=== PATIENT | male | born 1960 | race African-American/Black ===

== ENCOUNTER 2016-09-25 09:51 | Emergency (ER) | payer SELFPAY ==
[~2016-09-25] VITALS: Ht 188 cm; Wt 108.2 kg
[2016-09-25 09:54] VITALS: BP 201/108; PULSE 66; RESP 14; O2SAT 99
--- NOTE | 2016-09-25 10:17 | ED.REPORT ---
HPI-General Illness Date of Service Sep 25, 2016 ED Provider: Thony Antunez MD Patient is a 56 year old male with a history of hypertension who presents to the ED complaining of a headache. Associated symptoms include dizziness and right arm numbness that started 2 weeks ago. He denies chest pain, shortness of breath, abdominal pain or leg swelling. The patient thinks that his symptoms are due to his high blood pressure. Patient reports he used to take high blood pressure medication but he hasn't been taking it for the past two years. Nursing Notes Stated Complaint: BLOOD PRESSURE Chief Complaint: Headache Nursing Notes Reviewed: Yes Allergies: Coded Allergies: No Known Allergies (Unverified , 09/25/16) Scheduled Hydrochlorothiazide (Hydrochlorothiazide) 25 Mg Tablet 25 MG PO DAILY Lisinopril (Lisinopril) 20 Mg Tablet 20 MG PO DAILY General Time Seen by MD: 10:17 Chief Complaint Headache Hx Obtained From: Patient Arrived By: Walk-in Sudden in Onset?: Yes Onset Occurred: More than a week ago... Symptom Duration: Since onset Location: : Head Quality: Painful Severity: Current: Moderate Similar Sx Previous: No Past Medical History Past Medical History Reports: Hypertension Smoking History Current Every Day Smoker Ambulatory Status Independent Review of Systems Full Review of Systems Constitutional: Denies: Chills, Fever Respiratory: Denies: Non-productive cough, Shortness of breath Cardiovascular: Denies: Chest pain Skin: Denies Itching, Denies Rash Neurologic: Reports: Dizziness, Headache, Numbness, Denies: Weakness Complete sys rev & neg: except as marked. Physical Exam Vital Signs Vital Signs Date Time Temp Pulse Resp B/P Pulse Ox O2 Delivery O2 Flow Rate FiO2 09/25/16 12:17 58 16 175/94 100 Room Air 09/25/16 10:30 60 16 188/96 97 Room Air 09/25/16 09:54 36.8 66 14 201/108 99 Room Air Initial VS: Reviewed General/Constitutional: Awake, Alert, No acute distress Head / Eyes: Atraumatic, Normocephalic, PERRL, EOMI Respiratory / Chest: Atraumatic, Breath sounds NL, Breath sounds = bilat, No respiratory distress Cardiovascular: Heart rate NL, Regular rhythm, Heart sounds NL Abdomen: Atraumatic, Soft, Non-tender Upper Extremities Upper Extremity / MS: Atraumatic, Full range of motion Lower Extremity / Pelvis / MS: Atraumatic, No edema Skin: Atraumatic, Color NL, No rash, Warm, Dry Neurologic: Oriented X3, Speech NL Psychiatric: Affect NL, Mood NL Interpretation & Diagnostics Lab Results Interpretation Result Diagram: 09/25/16 1031 09/25/16 1031 Test 09/25/16 10:31 09/25/16 11:27 09/25/16 12:10 White Blood Count 7.7th/mm3 (3.8-10.1) Red Blood Count 4.97mil/mm3 (4.40-5.80) Hemoglobin 15.3g/dL (13.8-17.2) Hematocrit 45.1% (41.0-50.0) Mean Corpuscular Volume 90.7fL (81-100) Mean Corpuscular Hemoglobin 30.8pg (27.0-35.0) Mean Corpuscular Hemoglobin Concent 33.9% (32.0-37.0) Red Cell Distribution Width 13.6% (12.3-15.4) Platelet Count 269bil/L (150-400) Neutrophils (%) (Auto) 56.7% (40-74) Lymphocytes (%) (Auto) 27.2% (14-46) Monocytes (%) (Auto) 8.1% (4-12) Eosinophils (%) (Auto) 7.1% (0-5) Basophils (%) (Auto) 0.8% (0-3) Sodium Level 138mEq/L (134-144) Potassium Level 4.4mEq/L (3.5-5.2) Chloride Level 104mEq/L (97-108) Carbon Dioxide Level 24mmol/L (18-29) Blood Urea Nitrogen 9mg/dL (6-24) Creatinine 0.83mg/dL (0.76-1.27) Estimat Glomerular Filtration Rate 101mL/min (>59) Glucose Level 97mg/dL (60-99) Calcium Level 9.0mg/dL (8.5-10.1) Total Bilirubin 0.6mg/dL (0.0-1.2) Aspartate Amino Transf (AST/SGOT) 33U/L (0-50) Alanine Aminotransferase (ALT/SGPT) 31U/L (0-44) Alkaline Phosphatase 61U/L (25-150) Total Protein 8.4g/dL (6.4-8.4) Albumin 3.9g/dL (3.4-5.0) Urine Color Yellow (YELLOW) Urine Appearance Clear (CLEAR,HAZY) Urine pH 7.5 (5.0-8.0) Urine Specific Ray 1.015 (1.003-1.035) Urine Protein Negativemg/dL (NEG,TRACE) Urine Glucose (UA) Negativemg/dL (NEGATIVE) Urine Ketones Negativemg/dL (NEGATIVE) Urine Occult Blood Negative (NEGATIVE) Urine Nitrite Negative (NEGATIVE) Urine Bilirubin Negative (NEGATIVE) Urine Urobilinogen Normalmg/dL (NORMAL) Urine Leukocyte Esterase Negative (NEGATIVE) Urine RBC 0-2/hpf (0-2) Urine WBC 0-5/hpf (0-5) Urine Epithelial Cells None/hpf (NONE-MOD) Urine Crystals None seen (NONE SEEN) Urine Bacteria None/hpf (NONE-FEW) Urine Hyaline Casts None/lpf (NONE) Urine Granular Casts None seen (NONE SEEN) Urine Waxy Casts None seen (NONE SEEN) Urine Red Blood Cell Casts None seen (NONE SEEN) Urine White Blood Cell Casts None seen (NONE SEEN) Urine Mucus None seen (None Seen) Urine Trichomonas None seen (NONE SEEN) Urine Yeast None (NONE SEEN) Urinalysis Comment None Urine Culture Reflexed Not indicated Hold Yao Top Tube Received (Received) ECG Interpretation ECG Interpretation: prolonged NE interval probable anterior infarct, old Time: 10:40 Interpreted by: ED physician Normal ECG Interpretation: Normal rate (54), Normal sinus rhythm X-Ray Chest Interpretation Chest Xray Interpretation: IMPRESSION: Heart size at the upper limits of normal, mildly reduced inspiratory volume. Dictated by: Anthony Reese M.D. on 09/25/2016 at 12:04 Approved by: Anthony Reese M.D. on 09/25/2016 at 12:05 View: Portable, 1 view Interpretation / Wet Read by: Interpret - Radiologist Re-Eval/Medical Decision Time of Eval: 12:08 Re-Evaluation/Progress Note: Discussed all results and plan for discharge. Patient understands and agrees to plan. All questions were addressed. Counseled Regarding: Diagnosis, Lab results, Need for follow-up, When/why to return to ED Discharge & Departure Primary Impression: Headache Headache type: unspecified Headache chronicity pattern: acute headache Intractability: intractable Qualified Code: R51 - Headache Additional Impression: Hypertension Hypertension type: unspecified secondary hypertension Qualified Code: I15.9 - Secondary hypertension, unspecified Disposition: Home Discharge Condition All VS Reviewed: Yes Condition: Stable Patient Instructions: Hypertension (ED) Additional Instructions: Your EKG, labs and X-ray were normal and reassuring. Start taking Lisinopril and HCTZ daily. Take your blood pressure at the pharmacy every day and write it down. Keep your recorded blood pressures so that you can show them to the clinic doctor. Follow up with the referred clinic early next week for further evaluation regarding your blood pressure. Return to the emergency department if you develop any new or concerning symptoms. Referrals: Saloni Hollis MD Attestation Portions of this note were transcribed by Adrianna Dodge. I, Dr. Antunez personally performed the history, physical exam and medical decision-making; I reviewed and confirmed the accuracy of the information in the transcribed note. Signed by: Lorenzo Cardenas, 09/25/16 copies to: Saloni Hollis MD, Kirk H MD Sep 25, 2016 10:17 Eileen Dodge Sep 25, 2016 10:26
[2016-09-25 10:30] VITALS: BP 188/96; PULSE 60; RESP 16; O2SAT 97
[2016-09-25 10:36] LABS: BASOPHILS % (AUTO) 0.8 % (0-3); EOSINOPHILS % (AUTO) 7.1 % (0-5); MONOCYTES % (AUTO) 8.1 % (4-12); Mean Corpuscular Hemoglobin 30.8 pg (27.0-35.0); Mean Corpuscular Volume 90.7 fL (81-100); NEUTROPHILS % (AUTO) 56.7 % (40-74); Platelet Count 269 bil/L (150-400)
[2016-09-25 11:48] LABS: APPEARANCE,URINE CLEAR (CLEAR,HAZY); COLOR,URINE YELLOW (YELLOW); OCCULT BLOOD,URINE NEGATIVE (NEGATIVE); PH,URINE 7.5 (5.0-8.0); UROBILINOGEN,URINE NORMAL (NORMAL)
[2016-09-25] MEDS ORDERED: HYDR25TA4 PO (12:06)
[2016-09-25] MEDS ORDERED: LISI-567 PO (12:06)
--- NOTE | 2016-09-25 12:06 | DRSVH ---
PROCEDURE: X-RAY CHEST, TWO VIEWS ([id number]) INDICATIONS: hypertention TECHNIQUE: 2 views of the chest were acquired. COMPARISON: None. FINDINGS: Surgical changes and devices: None. Lungs and pleura: No pleural effusions or pneumothorax. Lungs are clear. Mediastinum: Mediastinal contours are normal. Heart size is normal considering that mildly reduced inspiratory volume. Bones and chest wall: No suspicious bony abnormalities. Soft tissues appear unremarkable. IMPRESSION: Heart size at the upper limits of normal, mildly reduced inspiratory volume. Dictated by: Anthony Reese M.D. on 09/25/2016 at 12:04 Approved by: Anthony Reese M.D. on 09/25/2016 at 12:05
[2016-09-25 12:17] VITALS: BP 175/94; PULSE 58; RESP 16; O2SAT 100
== END 2016-09-25 12:18 | disposition home or self-care (01) ==
LOC: SED 09:51
DX: R51 Headache (principal); I15.9 Secondary hypertension, unspecified; R42 Dizziness and giddiness; R20.2 Paresthesia of skin; F17.200 Nicotine dependence, unspecified, uncomplicated

== ENCOUNTER 2016-10-15 22:00 | Emergency (ER) | payer OTHER ==
[~2016-10-15] VITALS: Ht 185.4 cm; Wt 108.2 kg
[~2016-10-15 22:00] MED LIST: HYDR25TA4 PO; LISI-567 PO
[2016-10-15 22:10] VITALS: BP 151/83; PULSE 105; RESP 21; O2SAT 96
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
[2016-10-15] MEDS ORDERED: 0.9% Sodium Chloride 1,000 ML IV ONE (22:16)
[2016-10-15] MEDS ORDERED: MeTOProlol 1 mg/mL 5 mL Inj IVPUSH PRN (22:20)
[2016-10-15 22:26] LABS: BASOPHILS % (AUTO) 0.4 % (0-3); EOSINOPHILS % (AUTO) 2.2 % (0-5); MONOCYTES % (AUTO) 8.3 % (4-12); Mean Corpuscular Hemoglobin 31.4 pg (27.0-35.0); Mean Corpuscular Volume 92.4 fL (81-100); NEUTROPHILS % (AUTO) 65.6 % (40-74); Platelet Count 244 bil/L (150-400)
[2016-10-15 22:46] LABS: D-Dimer < 0.50 mg/L FEU (<0.50); INR 1.06 ratio
[2016-10-15 22:48] LABS: TROPONIN T 0.01 ug/L (0.0-0.011)
[2016-10-15 22:59] LABS: Magnesium 2.2 mg/dL (1.6-2.6)
[2016-10-16 00:07] VITALS: BP 134/84; PULSE 79; RESP 13; O2SAT 98
[2016-10-16] MEDS ORDERED: FAMO20T PO (02:30)
[2016-10-16] MEDS ORDERED: NAPR500T PO (02:30)
[2016-10-16 03:17] VITALS: BP 167/93; PULSE 71; RESP 20; O2SAT 98
--- NOTE | 2016-10-16 09:05 | DRSVH ---
PROCEDURE: X-RAY CHEST ONE VIEW, PORTABLE ([id number]) INDICATIONS: chest pain TECHNIQUE: One view of the chest was acquired. COMPARISON: [facility], CR, XR CHEST 2VW, 09/25/2016, 11:44. FINDINGS: Surgical changes and devices: None. Lungs and pleura: No pleural effusions or pneumothorax. Lungs are clear. Mediastinum: Mediastinal contours appear normal. Heart size is normal. Bones and chest wall: No suspicious bony lesions. Overlying soft tissues appear unremarkable. IMPRESSION: 1. No acute cardiopulmonary disease. Dictated by: Junior Casey M.D. on 10/16/2016 at 9:03 Approved by: Junior Casey M.D. on 10/16/2016 at 9:04
== END 2016-10-16 03:19 | disposition home or self-care (01) ==
LOC: SED 22:00 → EDBD 22:00 → SED 10-16 03:19
DX: R07.89 Other chest pain (principal); F22 Delusional disorders; R42 Dizziness and giddiness; I10 Essential (primary) hypertension; F17.200 Nicotine dependence, unspecified, uncomplicated
CPT/HCPCS: 36415; 71010; 80053; 83036; 83735; 83880; 84484; 85025; 85378; 85610; 85730; 93005; 96361; 96374; 96375; 99285; J2060; J7030

== ENCOUNTER 2016-10-16 17:00 | Emergency (ER) | payer OTHER ==
[~2016-10-16] VITALS: Ht 185.4 cm; Wt 108.2 kg
[~2016-10-16 17:00] MED LIST changes: +FAMO20T PO; +NAPR500T PO
[2016-10-16 17:03] VITALS: BP 146/95; PULSE 107; RESP 20; O2SAT 97
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
[2016-10-16 18:58] LABS: BASOPHILS % (AUTO) 0.3 % (0-3); MONOCYTES % (AUTO) 7.9 % (4-12); Mean Corpuscular Hemoglobin 30.9 pg (27.0-35.0); Mean Corpuscular Volume 92.1 fL (81-100); NEUTROPHILS % (AUTO) 70.7 % (40-74); Platelet Count 223 bil/L (150-400)
[2016-10-16 21:18] VITALS: BP 145/84; PULSE 80; RESP 20; O2SAT 98
== END 2016-10-16 21:20 | disposition home or self-care (01) ==
LOC: SED 17:00
DX: F22 Delusional disorders (principal); F15.10 Other stimulant abuse, uncomplicated; F43.10 Post-traumatic stress disorder, unspecified; I10 Essential (primary) hypertension; F17.200 Nicotine dependence, unspecified, uncomplicated

== ENCOUNTER 2016-10-17 00:01 | Inpatient (IN) | payer MEDICAID, OTHER ==
[~2016-10-17] VITALS: Ht 185.4 cm; Wt 104.5 kg
[2016-10-17 00:03] VITALS: BP 153/103; PULSE 83; RESP 18; O2SAT 100
[2016-10-17 00:28] LABS: BASOPHILS % (AUTO) 0.3 % (0-3); EOSINOPHILS % (AUTO) 3.6 % (0-5); MONOCYTES % (AUTO) 7.9 % (4-12); Mean Corpuscular Hemoglobin 31.3 pg (27.0-35.0); Mean Corpuscular Volume 91.2 fL (81-100); NEUTROPHILS % (AUTO) 69.1 % (40-74); Platelet Count 224 bil/L (150-400)
--- NOTE | 2016-10-17 01:07 | ED.REPORT ---
HPI-Psychiatric Illness Date of Service Oct 17, 2016 ED Provider: Yogesh Zuniga MD Pt is a 56 year old male with a hx of HTN, PTSD, and paranoid delusions presenting to the ED via law enforcement for a mental health evaluation. Police report that the pt was eyeballing people in the store, threatening to "gut" them. He had called dispatch and made those statements and also stated "If no one will believe me I'm going to kill myself." He was here in the ED earlier yesterday and was discharged a few hours ago. Pt denies any chest pain, fever, chills, nausea, vomiting, SOB or wheezing. Nursing Notes Stated Complaint: MENTAL HEALTH Chief Complaint: Psychiatric Complaint Nursing Notes Reviewed: Yes Allergies: Coded Allergies: No Known Allergies (Unverified , 10/17/16) Scheduled Famotidine (Pepcid) 20 Mg Tablet 20 MG PO BID Hydrochlorothiazide (Hydrochlorothiazide) 25 Mg Tablet 25 MG PO DAILY Lisinopril (Lisinopril) 20 Mg Tablet 20 MG PO DAILY Scheduled PRN Naproxen (Naprosyn) 500 Mg Tablet 500 MG PO BID PRN PRN For Pain General Time Seen by MD: 00:04 Chief Complaint Paranoid Hx Obtained From: Patient, Police Arrived By: Police Risk-Psychiatric Illness Suicide Risk Stratification Suicide Risk Factors - Adult: : Prior psych admission: Substance abuse RF Statements: Risk factors reviewed Past Medical History Past Medical History Hypertension PTSD Past Surgical History None reported. Smoking History Current Every Day Smoker Social History Other Social History: Local resident Ambulatory Status Independent Review of Systems Unable to Obtain ROS Mental status Physical Exam Initial Vital Signs Vital Signs (First) Date Time Temp Pulse Resp B/P Pulse Ox O2 Delivery O2 Flow Rate FiO2 10/17/16 00:03 36.8 83 18 153/103 100 Room Air Initial VS: Reviewed Head / Eyes: Atraumatic, Normocephalic, PERRL ENT: Mucous membranes moist, Conjunctiva normal, No scleral icterus Neck: Supple, Non-tender, Full range of motion Respiratory: Breath sounds normal, Clear to auscultation, No respiratory distress Cardiovascular: Regular rate & rhythm, Heart sounds normal, Intact distal pulses Abdomen / GI: Soft, Non-tender, No guarding, No rebound, No distention Extremities: Vascular intact, Neuro intact, No swelling, No tenderness Skin: Warm, Dry, No cyanosis General/Constitutional: Awake, Alert Neurologic: Oriented X3, Speech NL, No motor deficits, No sensory deficits, Memory NL Psychiatric: Mood NL Abnormal Thinking / Perception: Positive: Delusions - paranoid Respiratory / Chest: Atraumatic Slight right sided chest tenderness reproducible by palpation Interpretation & Diagnostics Lab Results Interpretation Result Diagram: 10/17/16 0017 10/17/16 0017 Test 10/17/16 00:17 10/17/16 01:40 White Blood Count 10.7th/mm3 (3.8-10.1) Red Blood Count 4.66mil/mm3 (4.40-5.80) Hemoglobin 14.6g/dL (13.8-17.2) Hematocrit 42.5% (41.0-50.0) Mean Corpuscular Volume 91.2fL (81-100) Mean Corpuscular Hemoglobin 31.3pg (27.0-35.0) Mean Corpuscular Hemoglobin Concent 34.4% (32.0-37.0) Red Cell Distribution Width 13.1% (12.3-15.4) Platelet Count 224bil/L (150-400) Neutrophils (%) (Auto) 69.1% (40-74) Lymphocytes (%) (Auto) 18.9% (14-46) Monocytes (%) (Auto) 7.9% (4-12) Eosinophils (%) (Auto) 3.6% (0-5) Basophils (%) (Auto) 0.3% (0-3) Sodium Level 139mEq/L (134-144) Potassium Level 3.5mEq/L (3.5-5.2) Chloride Level 102mEq/L (97-108) Carbon Dioxide Level 22mmol/L (18-29) Blood Urea Nitrogen 12mg/dL (6-24) Creatinine 0.81mg/dL (0.76-1.27) Estimat Glomerular Filtration Rate 104mL/min (>59) Glucose Level 113mg/dL (60-99) Calcium Level 9.1mg/dL (8.5-10.1) Total Bilirubin 0.7mg/dL (0.0-1.2) Aspartate Amino Transf (AST/SGOT) 46U/L (0-50) Alanine Aminotransferase (ALT/SGPT) 39U/L (0-44) Alkaline Phosphatase 66U/L (25-150) Total Protein 9.0g/dL (6.4-8.4) Albumin 4.2g/dL (3.4-5.0) Thyroid Stimulating Hormone (TSH) 0.925uIU/mL (0.450-4.500) Hold Yao Top Tube Received (Received) Alcohols < 10mg/dL (0-10) Hold Urine Received (Received) Re-Eval/Medical Decision Med Decision/Clinical Course Increasingly bizarre and psychotic behavior from this 56-year-old man with multiple police calls with paranoid ideation. Now threatening others at [facility] and threatening to kill himself as well, as he is despondent over his apparent hallucinations. Methamphetamine positive earlier today and now. Initially reported opiates were false positive and now reported negative. Waiting the requisite 6 hours for reevaluation per [facility]. The [facility] paged for completion of his evaluation this morning. Signed at [address] White Re-Evaluation/Progress : Time of Eval: 04:54 Patient Status: Condition improved Re-Evaluation/Progress Note: Care transferred to Dr. Hdz Counseled Regarding: Diagnosis, Lab results, Need for follow-up, When/why to return to ED Discharge & Departure Shift Change Sign-Out Patient Care Transferred: Yes Discussed Complaint(s): Yes Response to Therapy: Improved Impression: Primary Impression: Paranoid type delusional disorder Additional Impressions: Methamphetamine abuse Anxiety Discharge Condition All VS Reviewed: Yes Condition: Improved Referrals: NOPCP (PCP) Care Transferred to: Care transferred to Dr. Hdz Care Transferred at: 06:00 Lorenzo Attestation Portions of this note were transcribed by Rojas Orlando. I, Dr. Zuniga personally performed the history, physical exam and medical decision-making; I reviewed and confirmed the accuracy of the information in the transcribed note. Signed by: Lorenzo Collins, 10/16/2016. Yogesh Zuniga MD Oct 17, 2016 01:07 ROJAS ORLANDO Oct 17, 2016 01:10
[2016-10-17 05:56] VITALS: BP 151/83; PULSE 70; RESP 20; O2SAT 97
[2016-10-17 13:04] VITALS: BP 128/77; PULSE 70; O2SAT 98
[2016-10-17 19:21] VITALS: BP 128/77; PULSE 70; RESP 20; O2SAT 98
[2016-10-17] MEDS ORDERED: Alum-Mag Hydrox-Simeth 30 mL Suspension PO PRN (19:45)
[2016-10-17] MEDS ORDERED: Benzocaine-Menthol Lozenge 2/Pkg PO PRN (19:45)
[2016-10-17] MEDS ORDERED: LORazepam 1 mg Tablet PO PRN (19:45)
[2016-10-17] MEDS ORDERED: Magnesium Hydroxide 10 mL Oral Concentration PO PRN (19:45)
[2016-10-17] MEDS ORDERED: OLANZapine Zydis ODT 5 mg Tablet PO PRN (19:50)
[2016-10-18 11:32] VITALS: BP 150/82; PULSE 69; RESP 16
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
[2016-10-19 14:30] VITALS: BP 152/92; PULSE 71; RESP 16
--- NOTE | 2016-10-19 15:37 | PCM.PNPSY ---
Subjective Date of Service Oct 19, 2016 Subjective The patient reports that he "slept all day yesterday and I could not sleep last night." The patient discussed his paranoia for which he has increased insight into the effect of methamphetamine on the same. The patient's plans to fly back to [place] to stay with his sister and reports that he plans to "never do methamphetamine again." He reports that he feels safe going outside and does not feel threatened. He is not seen any of the vehicles from [place] since yesterday. Sleep: 7.75 hours Appetite: "Good" Suicidal and homicidal ideation: Denies Auditory hallucinations: Denies Visual hallucinations: Denies Other Psychotic Symptoms: Denies Anxiety: "Good" Depression: "Good" Current Medications Current Medications Famotidine 20 mg BID PO Last administered on 10/18/16 08:13; Admin Dose 20 MG; Start 10/17/16 at 20:30; Stop 10/18/16 at 16:18; Status DC Hydrochlorothiazide 25 mg DAILY PO Last administered on 10/19/16 08:22; Admin Dose 25 MG; Start 10/18/16 at 08:30 Lisinopril 20 mg DAILY PO Last administered on 10/19/16 08:22; Admin Dose 20 MG ; Start 10/18/16 at 08:30 Nicotine 1 patch DAILY TOPICAL Last administered on 10/19/16 08:22; Admin Dose 1 PATCH; Start 10/18/16 at 08:30 Nicotine Polacrilex 2 mg Q4H PRN PO Last administered on 10/18/16 10:22; Admin Dose 2 MG; Start 10/17/16 at 19:45 Zolpidem Tartrate START WITH 5 MG AND MAY REP... HS PRN PO Last administered on 10/18/16 21:12; Admin Dose 5 MG; Start 10/17/16 at 19:45 Mental Status Exam Appearance: Neat/well groomed Attitude: Pleasant, Cooperative Behavior: No unusual behavior Affect: Well Modulated/Appropriate Mood: Euthymic Thought Process/Associations: Logical/Sequential, Goal Directed Speech Production: Normal Speech Rate: Normal Speech Articulation: Normal Thought Content: Appropriate Danger to Self/Suicidal Ideati: None Danger to Others: None Delusions: Paranoid (Endorses, mild residual) Hallucinations: Auditory (Denies), Visual (Denies) Consciousness: Alert Orientation: Person, Place, Date, Situation Memory: Grossly Intact Estimate Intellectual Function: Average Basis for IQ estimate: Word use/vocabulary, Educational history, Employment history Attention/Concentration & Cogn: Grossly Intact Insight: Limited (but improving) Judgement: Good Result Diagram: 10/17/16 0017 10/17/16 0017 Mental Health Plan The patient is a 56-year-old male with an approximately one year history of methamphetamine use and episodic psychotic symptoms which appear to correspond with his methamphetamine use. The patient has improved insight today and he continues to be less paranoid than the day before. Although still somewhat disbelieving that his level of psychosis could result from methamphetamine, the patient expressed an understanding that it appeared that his symptoms may be methamphetamine related. He plans to return home to [place] for the support of his family while he recovers. [place] AXIS I: 1. Methamphetamine use disorder. 2. Methamphetamine induced psychotic disorder resolving. AXIS II: Deferred. AXIS III: Hypertension. AXIS IV: Homeless, minimal social support, substance abuse. AXIS V: Global Assessment of Functioning 40. Treatments 1. The patient will be admitted to the mental health unit and provided a safe and secure environment. 2. The patient is currently denying suicidal ideation and is not in need of a one-to-one at this time. 3. The patient is encouraged to participate with group and milieu activities. 4. The patient will be seen by the treatment team on a daily basis to assess symptoms, side effects, and response to treatment. 5. The patient will be offered olanzapine 5 mg q.6 h. as needed for psychosis. Should the patient manifest persistent psychosis this will be scheduled at bedtime. 6. Lorazepam 1-2 mg p.o. q.4 h. p.r.n. anxiety or agitation. 7. Zolpidem 5-10 mg nightly p.r.n. insomnia. 8. Hydrochlorothiazide 25 mg daily and lisinopril 20 mg daily. 9. Estimated length of stay is 2-3 days. Dakota Diamond MD Oct 19, 2016 15:37
--- NOTE | 2016-10-20 09:24 | PCM.DIMED ---
Discharge Instructions Date of Service Oct 20, 2016 Dates of Hospitalization Oct 17, 2016 at 16:57 Discharge Diagnosis Discharge Diagnosis AXIS I: 1. Methamphetamine use disorder. 2. Methamphetamine induced psychotic disorder, resolved. AXIS II: Deferred. AXIS III: Hypertension. AXIS IV: Homeless, minimal social support, substance abuse. AXIS V: Global Assessment of Functioning 55 Test Results Test Results CBC Test 10/17/16 00:17 White Blood Count 10.7th/mm3 (3.8-10.1) Red Blood Count 4.66mil/mm3 (4.40-5.80) Hemoglobin 14.6g/dL (13.8-17.2) Hematocrit 42.5% (41.0-50.0) Mean Corpuscular Volume 91.2fL (81-100) Mean Corpuscular Hemoglobin 31.3pg (27.0-35.0) Mean Corpuscular Hemoglobin Concent 34.4% (32.0-37.0) Red Cell Distribution Width 13.1% (12.3-15.4) Platelet Count 224bil/L (150-400) Neutrophils (%) (Auto) 69.1% (40-74) Lymphocytes (%) (Auto) 18.9% (14-46) Monocytes (%) (Auto) 7.9% (4-12) Eosinophils (%) (Auto) 3.6% (0-5) Basophils (%) (Auto) 0.3% (0-3) CMP Test 10/17/16 00:17 Sodium Level 139mEq/L Potassium Level 3.5mEq/L Chloride Level 102mEq/L Carbon Dioxide Level 22mmol/L Blood Urea Nitrogen 12mg/dL Creatinine 0.81mg/dL Estimat Glomerular Filtration Rate 104mL/min Glucose Level 113mg/dL Calcium Level 9.1mg/dL Total Bilirubin 0.7mg/dL Aspartate Amino Transf (AST/SGOT) 46U/L Alanine Aminotransferase (ALT/SGPT) 39U/L Alkaline Phosphatase 66U/L Total Protein 9.0g/dL Albumin 4.2g/dL Thyroid Stimulating Hormone (TSH) 0.925uIU/mL Hold Yao Top Tube Received Diet Discharge Diet: No restrictions Activity Discharge Activity: No restrictions Patient Instructions Patient Instructions Should you have any thoughts of harming yourself or others, please call the crisis line, your provider, 911, or go to the nearest Emergency Department. Do not change or discontinue your medications without discussing with your provider. You have been given a prescription for 30 days supply of your new medication Follow-up plan Per Counselor Follow-up with PCP in: 1 week Dakota Diamond MD Oct 20, 2016 09:23
[2016-10-20] MEDS ORDERED: LISI-567 PO (09:26)
[2016-10-20] MEDS ORDERED: HYDR25TA4 PO (09:26)
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
== END 2016-10-20 09:58 | disposition home or self-care (01) | DRG 897 ==
LOC: SED 00:01 → MHC 16:57
PROVIDERS: ADMIT Psychiatry & Neurology Psychiatry; ATTEND Psychiatry & Neurology Psychiatry
DX: F15.159 Other stimulant abuse with stimulant-induced psychotic disorder, unspecified (principal); R45.851 Suicidal ideations; Z65.3 Problems related to other legal circumstances; Z59.0 Homelessness